=== PATIENT | female | born 2000 | race Caucasian/White ===

== ENCOUNTER → 2020-07-02 | Outpatient (CLI) | payer BC ==
--- NOTE | 2020-07-02 11:06 | RAD ---
EXAMINATION: Chest radiograph. VIEWS: 2 views COMPARISON: None INDICATION: Chest pain FINDINGS: Normal cardiomediastinal silhouette. No focal consolidation. No pleural effusion or pneumothorax. No acute osseous process. IMPRESSION: No acute cardiopulmonary process. Electronically signed by: Madi Ulloa MD (07/02/2020 11:04 AM) [id number]
== END ==
LOC: PMG 10:36
PROVIDERS: ATTEND Physician Assistant Medical
DX: R07.9 Chest pain, unspecified (principal)
CPT/HCPCS: 71046